=== PATIENT | male | born 1995 | race Caucasian/White ===

== ENCOUNTER 2024-06-28 04:01 | Emergency (ER) | payer BC ==
[2024-06-28 04:11] VITALS: BP 127/89; PULSE 72; RESP 20; TEMP 98; BMI 27.3
[2024-06-28] MEDS ORDERED: SUCRALFATE 1 GM TABLET (FP) ONE (04:58)
[2024-06-28] MEDS: MAG HYDROX/AL HYDROX/SIMETH 30 ML UNIT-DOSE CUP PO ONE (05:06)
[2024-06-28] MEDS: ACETAMINOPHEN 1000 MG/100 ML BAG IVPB ONE (05:06)
[2024-06-28] MEDS: SUCRALFATE 1 GM/10 ML UNIT DOSE CUPS PO ONE (05:07)
[2024-06-28 05:29] LABS: POTASSIUM 3.9 mmol/L (3.5-5.1)
[2024-06-28 05:31] LABS: ALBUMIN 4.2 g/dl (3.4-5.0); CALCIUM 9.1 mg/dL (8.5-10.1)
[2024-06-28 05:32] LABS: BLOOD UREA NITROGEN 10.7 mg/dL (7-18)
[2024-06-28 05:36] LABS: BILIRUBIN,TOTAL 0.6 mg/dL (0.2-1); TOT PROT 7.1 g/dl (6.4-8.2)
[2024-06-28] MEDS ORDERED: MORPHINE SULFATE 2 MG/ML SYRINGE ONE (05:36)
[2024-06-28] MEDS: morphine CARPU-JECT 2 MG/1 ML DISP.SYRIN IVPUSH ONE (05:41)
[2024-06-28 06:48] LABS: BASO % 0.5 % (0-2.0); EOS % 1.8 % (0-4.5); HEMOGLOBIN 15.9 GM/dL (11.7-16.9); LYMPH % 29.2 % (8-40); MCH 29.6 pg (25.7-33.7); MCHC 35.4 g/dl (32.0-35.9); MEAN CELL VOLUME 83.8 fl (80-96); MEAN PLT VOLUME 8.4 fl (7.5-11.1); MONO % 6.3 % (3.8-10.2); NEUT % 62.2 % (42.8-82.8); PLATELET COUNT 286 10^3/uL (134-434); RBC 5.37 M/mm3 (4.00-5.60); RDW 12.8 % (11.9-15.9); WHITE BLOOD COUNT 7.7 K/mm3 (4.0-10.0)
== END 2024-06-28 06:36 | disposition home or self-care (01) ==
LOC: JER 04:01
PROC: 3E033NZ Introduction of Analgesics, Hypnotics, Sedatives into Peripheral Vein, Percutaneous Approach (ICD-10-PCS; principal; 2024-06-28)
PROC: 3E033NZ Introduction of Analgesics, Hypnotics, Sedatives into Peripheral Vein, Percutaneous Approach (ICD-10-PCS; 2024-06-28)
DX: R10.13 Epigastric pain (principal)
CPT/HCPCS: 36415; 80053; 83690; 83735; 85025; 99284-25; J0131